=== PATIENT | female | born 1955 | race Caucasian/White ===

== ENCOUNTER 2022-03-02 09:27 | Inpatient (IN) | payer OTHER, MEDICARE, SELFPAY ==
--- NOTE | ~2022-03-02 | CT_ITS ---
EXAMINATION: CT GI BLEED ABDOMEN AND PELVIS WITH AND WITHOUT CONTRAST CLINICAL INFORMATION: Clotted via rectum. Abdominal pain. COMPARISON: None TECHNIQUE: Axial images through the abdomen and pelvis with and without IV contrast. The patient received 80 mL of Omnipaque 350 intravenous contrast. Sagittal and coronal reconstructions on the technologist workstation were performed. Patient dose 8 3 2 mg/cm. FINDINGS: Vascular: The abdominal aorta is normal in caliber and patent. The common, internal and external iliac and common femoral arteries and femoral bifurcations are normal in caliber and patent. The celiac axis, SMA and KADE are normal in caliber and patent. There are single patent renal arteries bilaterally. No evidence of active GI bleeding is seen. The SMV and IMV are patent. The splenic vein portal veins are patent. Veins are patent. The renal veins are patent. The IVC appears patent. The lung bases are clear. The liver and gallbladder are normal. There are multiple splenules. The spleen is otherwise unremarkable. The pancreas is normal. The adrenal glands are normal. There is bilateral renal cysts measuring 1.5 cm in the peripelvic mid to lower pole of the right kidney and 4 x 6 cm in the upper pole of the left kidney. The kidneys are otherwise unremarkable. No imaging follow-up needed. The bladder is normal. The uterus and adnexa are normal. There is mild diverticulosis of the colon. There is long segment wall thickening and wall edema of the distal colon involving the left colon and sigmoid colon. There is stranding of the surrounding fat. There is prominence of the vasa recta. Appearance is suggestive of active colitis. No evidence of obstruction or free air. No abscess. Small and large bowel is otherwise unremarkable. The rectum is normal. The appendix is normal. The stomach is normal. There is a small umbilical hernia containing fat. Trace ascites in the pelvis. No free air. There are degenerative changes of the spine and hip joints. CT/CT gi bleed abd pel wo/w con IMPRESSION: No evidence of active GI bleed. Severe colitis of the left colon and sigmoid colon. Mild diverticulosis of the colon. Bilateral renal cysts.
[2022-03-02 09:33] VITALS: BP 187/84; PULSE 74; RESP 18; TEMP 37.1; O2SAT 95; BMI 34.9
--- NOTE | 2022-03-02 09:50 | ECG_ITS ---
Test Reason : GI bleed/weakness Blood Pressure : / mmHG Vent. Rate : 067 BPM Atrial Rate : 067 BPM P-R Int : 154 ms QRS Dur : 080 ms QT Int : 406 ms P-R-T Axes : 058 025 014 degrees QTc Int : 429 ms Normal sinus rhythm Cannot rule out Anterior infarct , age undetermined Abnormal ECG No previous ECGs available Referred By: Thalia Foster Electronically Signed By:SANDRA MAYEN
--- NOTE | 2022-03-02 09:51 | ED.GIBLEED ---
HPI - GI Bleed General Chief complaint: GI Bleed Stated complaint: constipated x3 days, blood clots Time Seen by Provider: 03/02/22 09:48 Source: patient Mode of arrival: ambulatory Limitations: no limitations History of Present Illness HPI Narrative: 66 y female hx of HTN not on thinners or NSAIDs/ASA comes in with c/o 3 days of abdominal discomfort, bloating, and brbpr with clots since Monday. She has had 4 + movements with clots per day no stool mixed in. She denies prior colonoscopy but had cologuard this month that was negative. She has here visiting from [place]. No recent antibiotic use, no sick contacts, no prior bouts of this. The patient notes prior to this she shared pineapple pizza and [employer] with her family no one else got sicj. MD complaint: gross hematochezia Onset (ago): day(s) (4 (started Monday)) Pain Consistency: intermittent Severity: moderate Relieving factors: bowel movement Exacerbating factors: movement Associated symptoms: abdominal pain, nausea, loss of appetite and malaise Treatments Prior to Arrival: none Related Data Home Medications Medication Instructions Recorded Confirmed amlodipine 10 mg tablet 1 tab PO DAILY 03/02/22 03/02/22 calcium carbonate 500 mg-vitamin 2 tab PO DAILY 03/02/22 03/02/22 D3 10 mcg (400 unit) tablet (Calcium 500 + D) citalopram 40 mg tablet 1 tab PO DAILY 03/02/22 03/02/22 clonazepam 0.5 mg tablet 1 tab PO DAILY PRN Anxiety 03/02/22 03/02/22 omeprazole 20 mg capsule,delayed 1 cap PO DAILY PRN Heartburn 03/02/22 03/02/22 release Allergies Allergy/AdvReac Type Severity Reaction Status Date / Time No Known Allergies Allergy Verified 03/02/22 09:33 Review of Systems Review of Systems: Constitutional : No Weight loss, No Fever, No Chills ENT/Mouth : No sore throat, No Rhinorrhea Eyes: No Swelling, No Redness Cardiovascular : No Chest Pain, No SOB, NoEdema Respiratory : No Cough, No Sputum, No Wheezing Gastrointestinal : Positive Nausea, no Vomiting, positive Diarrhea, positive abdominal Pain, pos Hematochezia, No Melena Genitourinary : No Dysuria, No Urinary Frequency, No Hematuria, No Urgency Musculoskeletal : No joint pain, No Myalgias, No Joint Swelling Skin : No Skin Lesions, No rash Neuro : No Weakness, No Numbness, No Dizziness, No Headache Psych : No Anxiety/Panic, No Depression Heme/Lymph: No Bruising, No Lymphadenopathy Endocrine : No Polyuria, No Polydipsia All other systems reviewed and are negative. [facility] Past Medical History Attestation statement: The following information was validated with the patient. Medical History HTN (hypertension) Social History Social History (Updated 03/02/22 @ 10:14 by Thalia Foster DO) Patient Tobacco Use Status: Never used Tobacco Use of substances other than those prescribed or required for medical reasons: No Advance Directives: No Advance Directives Information Provided: Yes Physical Exam Vital Signs: Vital Signs: Last Vital Signs Temp 98.7 F 03/02/22 09:33 Pulse 72 03/02/22 10:16 Resp 18 03/02/22 10:16 BP 174/91 H 03/02/22 10:16 Pulse Ox 93 03/02/22 10:16 O2 Del Method 03/02/22 10:16 BMI result Body Mass Index 34.9 Appearance: Alert. Oriented X3. in pain mild acute distress. Eyes: Pupils equal, round and reactive to light. ENT: Pharynx normal. Neck: Normal inspection. Neck supple. CVS: Normal heart rate and rhythm. Pulses normal. Respiratory: No respiratory distress. Breath sounds normal. Abdomen: Soft and moderate diffuse ttp no rebound mild vol guarding Rectal: ext non thrombosed hemorrhoids, dried blood on rectum, digit brb noted Skin: Skin warm and dry. Normal skin color. Normal skin turgor. Extremities: No lower extremity edema. No calf ttp Neuro: Oriented X 3. No motor deficit. No sensory deficit. Course Course Course Narrative: H/H stable, given pain and repeat pain medications and severe colitis will admit for IV pain control, hydration start on levofloxacin and flagyl given CT scan and suspected colitis - blood cultures ordered, infection suspected 1230pm MDM - GI Bleed MDM Narrative Medical decision making narrative: 66 yo female with hx of HTN now here with abdominal pain and brbpr with clots not on AC therapy at this time will need labs, IVF, IV fentanyl for pain. type and screen ordered. CT scan for GI bleed protocol as well. Dispo per results and findings - possible admit. Lab Data Result diagrams: 03/02/22 10:13 03/02/22 10:13 Labs: Lab Results 03/02/22 03/02/22 03/02/22 Range/Units 10:13 10:13 10:13 WBC 12.2 H (4.8-10.8) X10*3/uL RBC 4.92 (4.20-5.50) X10*6/uL Hgb 14.9 (12.0-16.0) g/dl Hct 43.9 (37.0-47.0) % MCV 89.2 (80.0-98.0) fL MCH 30.3 (27.0-33.0) pg MCHC 33.9 (31.0-35.0) g/dl RDW 13.4 (11.0-16.0) % Plt Count 209 (160-400) X10*3/uL MPV 11.0 (9.4-12.3) fL Immature Gran % (Auto) 0.4 (0.0-0.4) % Neut % (Auto) 75.7 H (45-73) % Lymph % (Auto) 15.6 L (20-40) % [place] % (Auto) 6.7 (2-11) % Eos % (Auto) 1.0 (0-4) % Baso % (Auto) 0.6 (0-2) % Lymph # (Auto) 1.9 (1.2-4.9) X10*3/uL [place] # (Auto) 0.8 (0.1-1.2) X10*3/uL Eos # (Auto) 0.1 (0.0-0.4) X10*3/uL Baso # (Auto) 0.1 (0.0-0.2) X10*3/uL Abs Immat Gran (auto) 0.05 H (0.00-0.03) X10*3/uL Absolute Neuts (auto) 9.2 H (2.0-8.3) x10*3/uL Absolute Nucleated RBC 0.000 (0.0-0.012) X10*3/uL Nucleated RBC % (auto) 0.0 (0.0-0.2) /100WBC PT 12.2 (10.0-13.1) SEC INR 1.1 (0.9-1.1) Sodium 142 (135-145) mmol/L Potassium 3.2 L (3.3-5.1) mmol/L Chloride 102 (96-108) mmol/L Carbon Dioxide 28 (22-29) mmol/L Anion Gap 15 (12-20) BUN 11 (9-16) mg/dL Creatinine 0.82 (0.5-1.4) mg/dL Estim Creat Clear Calc 78.0 Estimated GFR > 60 Random Glucose 120 H (60-115) mg/dL Lactic Acid (0.5-2.0) mmol/L Calcium 8.9 (8.4-10.2) mg/dL Magnesium 2.0 (1.6-2.6) mg/dL Total Bilirubin 0.6 (0.0-1.0) mg/dL Direct Bilirubin 0.3 (0.0-0.5) mg/dL AST 13 (5-31) U/L ALT 12 (0-31) U/L Alkaline Phosphatase 78 (39-117) U/L Total Protein 6.5 (6.5-8.0) g/dL Albumin 4.0 (3.5-5.0) g/dL Lipase 17 (8-78) U/L Urine Color Urine Appearance Urine pH (5.0-8.0) Ur Specific [place] (1.005-1.025) Urine Protein (Neg-Trace) mg/dL Urine Glucose (UA) (Negative) mg/dL Urine Ketones (Negative) mg/dL Urine Blood (Negative) Urine Nitrite (Negative) Ur Leukocyte Esterase (Negative) Urine RBC (0-2) /HPF Urine WBC (0-5) /HPF Ur Squamous Epith Cells (0-2) /HPF Urine Bacteria (None Seen) Hyaline Casts (0-2) /LPF Stool Occult Blood (NEGATIVE) COVID-19 (LOLI) (Negative) COVID-19 Clin Com Blood Type Antibody Screen 03/02/22 03/02/22 03/02/22 Range/Units 10:13 10:13 10:13 WBC (4.8-10.8) X10*3/uL RBC (4.20-5.50) X10*6/uL Hgb (12.0-16.0) g/dl Hct (37.0-47.0) % MCV (80.0-98.0) fL MCH (27.0-33.0) pg MCHC (31.0-35.0) g/dl RDW (11.0-16.0) % Plt Count (160-400) X10*3/uL MPV (9.4-12.3) fL Immature Gran % (Auto) (0.0-0.4) % Neut % (Auto) (45-73) % Lymph % (Auto) (20-40) % [place] % (Auto) (2-11) % Eos % (Auto) (0-4) % Baso % (Auto) (0-2) % Lymph # (Auto) (1.2-4.9) X10*3/uL [place] # (Auto) (0.1-1.2) X10*3/uL Eos # (Auto) (0.0-0.4) X10*3/uL Baso # (Auto) (0.0-0.2) X10*3/uL Abs Immat Gran (auto) (0.00-0.03) X10*3/uL Absolute Neuts (auto) (2.0-8.3) x10*3/uL Absolute Nucleated RBC (0.0-0.012) X10*3/uL Nucleated RBC % (auto) (0.0-0.2) /100WBC PT (10.0-13.1) SEC INR (0.9-1.1) Sodium (135-145) mmol/L Potassium (3.3-5.1) mmol/L Chloride (96-108) mmol/L Carbon Dioxide (22-29) mmol/L Anion Gap (12-20) BUN (9-16) mg/dL Creatinine (0.5-1.4) mg/dL Estim Creat Clear Calc Estimated GFR Random Glucose (60-115) mg/dL Lactic Acid 1.0 (0.5-2.0) mmol/L Calcium (8.4-10.2) mg/dL Magnesium (1.6-2.6) mg/dL Total Bilirubin (0.0-1.0) mg/dL Direct Bilirubin (0.0-0.5) mg/dL AST (5-31) U/L ALT (0-31) U/L Alkaline Phosphatase (39-117) U/L Total Protein (6.5-8.0) g/dL Albumin (3.5-5.0) g/dL Lipase (8-78) U/L Urine Color Urine Appearance Urine pH (5.0-8.0) Ur Specific [place] (1.005-1.025) Urine Protein (Neg-Trace) mg/dL Urine Glucose (UA) (Negative) mg/dL Urine Ketones (Negative) mg/dL Urine Blood (Negative) Urine Nitrite (Negative) Ur Leukocyte Esterase (Negative) Urine RBC (0-2) /HPF Urine WBC (0-5) /HPF Ur Squamous Epith Cells (0-2) /HPF Urine Bacteria (None Seen) Hyaline Casts (0-2) /LPF Stool Occult Blood POSITIVE (NEGATIVE) COVID-19 (LOLI) Negative (Negative) COVID-19 Clin Com See Note Blood Type Antibody Screen 03/02/22 03/02/22 Range/Units 10:40 11:34 WBC (4.8-10.8) X10*3/uL RBC (4.20-5.50) X10*6/uL Hgb (12.0-16.0) g/dl Hct (37.0-47.0) % MCV (80.0-98.0) fL MCH (27.0-33.0) pg MCHC (31.0-35.0) g/dl RDW (11.0-16.0) % Plt Count (160-400) X10*3/uL MPV (9.4-12.3) fL Immature Gran % (Auto) (0.0-0.4) % Neut % (Auto) (45-73) % Lymph % (Auto) (20-40) % [place] % (Auto) (2-11) % Eos % (Auto) (0-4) % Baso % (Auto) (0-2) % Lymph # (Auto) (1.2-4.9) X10*3/uL [place] # (Auto) (0.1-1.2) X10*3/uL Eos # (Auto) (0.0-0.4) X10*3/uL Baso # (Auto) (0.0-0.2) X10*3/uL Abs Immat Gran (auto) (0.00-0.03) X10*3/uL Absolute Neuts (auto) (2.0-8.3) x10*3/uL Absolute Nucleated RBC (0.0-0.012) X10*3/uL Nucleated RBC % (auto) (0.0-0.2) /100WBC PT (10.0-13.1) SEC INR (0.9-1.1) Sodium (135-145) mmol/L Potassium (3.3-5.1) mmol/L Chloride (96-108) mmol/L Carbon Dioxide (22-29) mmol/L Anion Gap (12-20) BUN (9-16) mg/dL Creatinine (0.5-1.4) mg/dL Estim Creat Clear Calc Estimated GFR Random Glucose (60-115) mg/dL Lactic Acid (0.5-2.0) mmol/L Calcium (8.4-10.2) mg/dL Magnesium (1.6-2.6) mg/dL Total Bilirubin (0.0-1.0) mg/dL Direct Bilirubin (0.0-0.5) mg/dL AST (5-31) U/L ALT (0-31) U/L Alkaline Phosphatase (39-117) U/L Total Protein (6.5-8.0) g/dL Albumin (3.5-5.0) g/dL Lipase (8-78) U/L Urine Color Yellow Urine Appearance Clear Urine pH 6.5 (5.0-8.0) Ur Specific [place] 1.020 (1.005-1.025) Urine Protein Negative (Neg-Trace) mg/dL Urine Glucose (UA) Negative (Negative) mg/dL Urine Ketones Negative (Negative) mg/dL Urine Blood Negative (Negative) Urine Nitrite Negative (Negative) Ur Leukocyte Esterase Small (1+) H (Negative) Urine RBC 0-2 (0-2) /HPF Urine WBC 0-5 (0-5) /HPF Ur Squamous Epith Cells 3-5 (0-2) /HPF Urine Bacteria None Seen (None Seen) Hyaline Casts 0-2 (0-2) /LPF Stool Occult Blood (NEGATIVE) COVID-19 (LOLI) (Negative) COVID-19 Clin Com Blood Type A Positive Antibody Screen NEGATIVE ECG Data Attestation: I personally reviewed and interpreted this ECG as follows: ECG interpretation date: 03/02/22 ECG interpretation time: 10:31 Interpretation: Rate: 67 Rhythm: NSR [place]: normal Normal P waves. Normal ZEKE. Normal QRS complex. ST T wave : no SHYANNE, non-specific, inverted t waves in V1-V3 qTC: normal prior studies: no priors The study has been interpreted contemporaneously by me. . Discharge Plan Discharge Clinical Impression: Bright red rectal bleeding, Colitis, Abdominal pain, Acute hypokalemia Patient Disposition: Admitted As Inpatient
[2022-03-02 10:16] VITALS: BP 174/91; PULSE 72; RESP 18; O2SAT 93
[2022-03-02 10:20] LABS: MANUAL DIFF FLAG NO
[2022-03-02 10:23] LABS: Basophils Absolute Auto 0.1 X10*3/uL (0.0-0.2); Basophils Percent Auto 0.6 % (0-2); Eosinophils Absolute Auto 0.1 X10*3/uL (0.0-0.4); Hematocrit 43.9 % (37.0-47.0); Hemoglobin 14.9 g/dl (12.0-16.0); Imm Gran Abs Auto 0.05 X10*3/uL (0.00-0.03); Imm Gran Pct Auto 0.4 % (0.0-0.4); Lymphocytes Absolute Auto 1.9 X10*3/uL (1.2-4.9); Lymphocytes Percent Auto 15.6 % (20-40); Mean Corpuscular HGB Conc 33.9 g/dl (31.0-35.0); Mean Corpuscular Hemoglobin 30.3 pg (27.0-33.0); Mean Corpuscular Volume 89.2 fL (80.0-98.0); Monocytes Absolute Auto 0.8 X10*3/uL (0.1-1.2); Monocytes Percent Auto 6.7 % (2-11); Neutrophils Absolute Auto 9.2 x10*3/uL (2.0-8.3); Neutrophils Percent Auto 75.7 % (45-73); Platelet Count 209 X10*3/uL (160-400); Red Blood Count 4.92 X10*6/uL (4.20-5.50); Red Cell Distribution Width 13.4 % (11.0-16.0); White Blood Count 12.2 X10*3/uL (4.8-10.8)
[2022-03-02 10:24] LABS: OBS Int Ctl Valid YES; OBS1 POSITIVE (NEGATIVE)
[2022-03-02 10:29] LABS: INTERNATIONAL NORM RATIO 1.1 (0.9-1.1); Prothrombin Time 12.2 SEC (10.0-13.1)
[2022-03-02] MEDS: fentaNYL citrate/PF 100 MCG/2 ML VIAL 50 MCG IVPUSH (10:29)
[2022-03-02] MEDS: ondansetron HCL 4 MG/2 ML VIAL IVPUSH ×2 (10:29→15:59)
[2022-03-02] MEDS: Lactated Ringers 1,000 ML 999 ML IV (10:31)
[2022-03-02 10:39] LABS: Alanine Aminotransferase 12 U/L (0-31); Alkaline Phosphatase 78 U/L (39-117); Anion Gap 15 (12-20); Aspartate Amino Transferase 13 U/L (5-31); Bilirubin Direct 0.3 mg/dL (0.0-0.5); Bilirubin Total 0.6 mg/dL (0.0-1.0); Blood Urea Nitrogen 11 mg/dL (9-16); Calcium 8.9 mg/dL (8.4-10.2); Carbon Dioxide 28 mmol/L (22-29); Chloride 102 mmol/L (96-108); Estimated Glomerular Filt Rate > 60; Glucose Random 120 mg/dL (60-115); Lipase 17 U/L (8-78); Potassium 3.2 mmol/L (3.3-5.1); Sodium 142 mmol/L (135-145); Total Protein 6.5 g/dL (6.5-8.0)
[2022-03-02 10:47] LABS: COVID-19 Test Negative (Negative)
[2022-03-02] MEDS: Potassium Chloride/H20 10 MEQ/100 ML PIGGYBACK 100 MEQ IV ×2 (10:51→13:01)
[2022-03-02] MEDS: iohexoL 350 MG/ML 100 ML INFUS..BTL IV (11:23)
[2022-03-02 11:42] LABS: Appearance Urine Clear; Color Urine Yellow; Glucose Urine UA Negative (Negative); Leukocyte Esterase Urine Small (1+) (Negative); Nitrite Urine Negative (Negative); PH 6.5 (5.0-8.0); Urine Blood Negative (Negative); Urine Ketones Negative (Negative); Urine Protein Negative (Neg-Trace)
[2022-03-02 12:17] LABS: Bacteria Urine None Seen (None Seen); Hyaline Casts Urine 0-2 /LPF (0-2); RBC Urine 0-2 /HPF (0-2); UACC Culture Trigger YES; WBC Urine 0-5 /HPF (0-5)
--- NOTE | 2022-03-02 12:34 | PHA.MEDREC ---
Pharmacy Consult ? Medication Reconciliation Pharmacy has completed the medication reconciliation.
[2022-03-02] MEDS: HYDROmorphone HCl 0.5 MG/0.5 ML SYRINGE IVPUSH ×3 (13:01→21:09)
[2022-03-02] MEDS: Lactated Ringers 1,000 ML 100 ML IVCONT (13:05)
[2022-03-02 13:16] VITALS: BP 145/83; PULSE 83; RESP 18; O2SAT 88
[2022-03-02 13:19] VITALS: O2SAT 98
[2022-03-02] MEDS: levoFLOXacin/D5W 500 MG/100 ML PIGGYBACK 100 MG IV (13:33)
--- NOTE | 2022-03-02 13:54 | PM.IMHP ---
History of Present Illness Date of Service: 03/02/22 Chief Complaint: Abdominal pain, rectal bleeding A 66 years old lady with PMH of depression, anxiety, HTN who presents to the hospital complaining of abdominal pain and bloody bowel movement for the last 3 days. She reports that on Monday she was out having dinner with family. Started to have abdominal pain bloating and diarrhea that evening with evidence of clots with stool. Her pain was control so she did not come to the hospital and was able to tolerate liquids. Reporting almost 45 bowel movement today over the last few days with recurrent bloody clots. Denies any chest pain, palpitation, shortness of breath, nausea or vomiting or any urinary symptoms. No one from the family who joint her for the de not had any similar symptoms. The pain was central, pressure-like with burning sensation in her lower abdomen. Not radiated to any other place. Report that she had colonoscopy when she was around 51 that was normal but did not follow-up after that. In the emergency a CT scan was consistent with evidence of colitis. Admitted for further evaluation and treatment. Review of Systems Review of Systems: No fever, chills or weakness No chest pain, palpitation No shortness of breath or coughing Abdominal pain, bloody bowel motions No urinary symptoms No any rash or wounds PMFSH Medical History HTN (hypertension) Social History (Updated 03/02/22 @ 10:14 by Thalia Foster DO) Patient Tobacco Use Status: Never used Tobacco Use of substances other than those prescribed or required for medical reasons: No Advance Directives: No Advance Directives Information Provided: Yes Meds Allergies Allergy/AdvReac Type Severity Reaction Status Date / Time No Known Allergies Allergy Verified 03/02/22 09:33 Active Medications: Current Medications Acetaminophen (Acetaminophen 325 Mg Tablet) 650 mg PO Q6H PRN PRN Reason: Pain, Mild (Pain Scale 1-3) Amlodipine Besylate (Amlodipine Besylate 10 Mg Tablet) 10 mg PO DAILY JOHN; Protocol Clonazepam (Clonazepam 0.5 Mg Tablet) 0.5 mg PO DAILY PRN PRN Reason: Anxiety Hydromorphone HCl (Hydromorphone Hcl 1 Mg/Ml Syringe) 0.5 mg IVPUSH Q4H PRN; Protocol PRN Reason: Pain, Severe (Pain Scale 7-10) Lactated Ringer's (Lr) 1,000 mls @ 100 mls/hr IVCONT .Q10H [facility] Last Admin: 03/02/22 13:05 Dose: 100 mls/hr Levofloxacin (Levaquin) 500 mg in 100 mls @ 100 mls/hr IV Q24H JOHN Metronidazole (Flagyl) 500 mg in 100 mls @ 100 mls/hr IV Q8H [facility] Non-Formulary Medication (Citalopram) 1 tab PO DAILY [facility] Omeprazole (Omeprazole 20 Mg Capsule.Dr) 20 mg PO DAILY PRN PRN Reason: Heartburn Ondansetron HCl (Ondansetron Hcl 4 Mg/2 Ml Vial) 4 mg IVPUSH Q8H PRN PRN Reason: Nausea and Vomiting Pharmacy Consult (Consult Rx Perform Med Rec) 1 each MISCELLANE ONCE PRN PRN Reason: Consult order Sodium Chloride (0.9 % Sodium Chloride Flush 3 Ml Syringe) 3 ml IVFLUSH QSHIFT [facility] Home Medications Medication Instructions Recorded Confirmed Last Taken Type amlodipine 10 mg tablet 1 tab PO DAILY 03/02/22 03/02/22 03/01/22 History calcium carbonate 500 mg-vitamin 2 tab PO DAILY 03/02/22 03/02/22 03/01/22 History D3 10 mcg (400 unit) tablet (Calcium 500 + D) citalopram 40 mg tablet 1 tab PO DAILY 03/02/22 03/02/22 03/01/22 History clonazepam 0.5 mg tablet 1 tab PO DAILY PRN Anxiety 03/02/22 03/02/22 03/01/22 History omeprazole 20 mg capsule,delayed 1 cap PO DAILY PRN Heartburn 03/02/22 03/02/22 Unknown History release Physical Exam Vital Signs and Narrative: Vital Signs: Last Vital Signs Temp 98.7 F 03/02/22 09:33 Pulse 83 03/02/22 13:16 Resp 18 03/02/22 13:16 BP 145/83 H 03/02/22 13:16 Pulse Ox 98 03/02/22 13:19 O2 Del Method 03/02/22 13:19 O2 Flow Rate 2 03/02/22 13:19 BMI result Body Mass Index 34.9 Const: Other: Constitutional : Alert, oriented, not in distress Neck : Normal inspection, Supple Cardiovascular : RRR, no JVP, no lower extremity edema Respiratory : fair bilateral air entry, no crackles, wheezes or rhonchi Gastrointestinal: soft, lax, decreased bowel sounds, generalized abdominal tenderness with no surgical signs. Skin : Warm, Dry Neurological : Alert & oriented x3, No focal deficit , CN 2-12 within normal Results Labs CBC and Chem 7: 03/02/22 10:13 03/02/22 10:13 Labs: Laboratory Results - last 24 hr 03/02/22 03/02/22 03/02/22 10:13 10:13 10:13 MCV 89.2 MCH 30.3 MCHC 33.9 RDW 13.4 Plt Count 209 MPV 11.0 Immature Gran % (Auto) 0.4 Neut % (Auto) 75.7 H Lymph % (Auto) 15.6 L [place] % (Auto) 6.7 Eos % (Auto) 1.0 Baso % (Auto) 0.6 Lymph # (Auto) 1.9 [place] # (Auto) 0.8 Eos # (Auto) 0.1 Baso # (Auto) 0.1 Abs Immat Gran (auto) 0.05 H Absolute Neuts (auto) 9.2 H Absolute Nucleated RBC 0.000 Nucleated RBC % (auto) 0.0 PT 12.2 INR 1.1 Anion Gap 15 Estim Creat Clear Calc 78.0 Estimated GFR > 60 Random Glucose 120 H Lactic Acid Calcium 8.9 Magnesium 2.0 Total Bilirubin 0.6 Direct Bilirubin 0.3 AST 13 ALT 12 Alkaline Phosphatase 78 Total Protein 6.5 Albumin 4.0 Lipase 17 Urine Color Urine Appearance Urine pH Ur Specific [place] Urine Protein Urine Glucose (UA) Urine Ketones Urine Blood Urine Nitrite Ur Leukocyte Esterase Urine RBC Urine WBC Ur Squamous Epith Cells Urine Bacteria Hyaline Casts Stool Occult Blood COVID-19 (LOLI) COVID-19 Clin Com Blood Type Antibody Screen 03/02/22 03/02/22 03/02/22 10:13 10:13 10:13 MCV MCH MCHC RDW Plt Count MPV Immature Gran % (Auto) Neut % (Auto) Lymph % (Auto) [place] % (Auto) Eos % (Auto) Baso % (Auto) Lymph # (Auto) [place] # (Auto) Eos # (Auto) Baso # (Auto) Abs Immat Gran (auto) Absolute Neuts (auto) Absolute Nucleated RBC Nucleated RBC % (auto) PT INR Anion Gap Estim Creat Clear Calc Estimated GFR Random Glucose Lactic Acid 1.0 Calcium Magnesium Total Bilirubin Direct Bilirubin AST ALT Alkaline Phosphatase Total Protein Albumin Lipase Urine Color Urine Appearance Urine pH Ur Specific [place] Urine Protein Urine Glucose (UA) Urine Ketones Urine Blood Urine Nitrite Ur Leukocyte Esterase Urine RBC Urine WBC Ur Squamous Epith Cells Urine Bacteria Hyaline Casts Stool Occult Blood POSITIVE COVID-19 (LOLI) Negative COVID-19 Clin Com See Note Blood Type Antibody Screen 03/02/22 03/02/22 10:40 11:34 MCV MCH MCHC RDW Plt Count MPV Immature Gran % (Auto) Neut % (Auto) Lymph % (Auto) [place] % (Auto) Eos % (Auto) Baso % (Auto) Lymph # (Auto) [place] # (Auto) Eos # (Auto) Baso # (Auto) Abs Immat Gran (auto) Absolute Neuts (auto) Absolute Nucleated RBC Nucleated RBC % (auto) PT INR Anion Gap Estim Creat Clear Calc Estimated GFR Random Glucose Lactic Acid Calcium Magnesium Total Bilirubin Direct Bilirubin AST ALT Alkaline Phosphatase Total Protein Albumin Lipase Urine Color Yellow Urine Appearance Clear Urine pH 6.5 Ur Specific [place] 1.020 Urine Protein Negative Urine Glucose (UA) Negative Urine Ketones Negative Urine Blood Negative Urine Nitrite Negative Ur Leukocyte Esterase Small (1+) H Urine RBC 0-2 Urine WBC 0-5 Ur Squamous Epith Cells 3-5 Urine Bacteria None Seen Hyaline Casts 0-2 Stool Occult Blood COVID-19 (LOLI) COVID-19 Clin Com Blood Type A Positive Antibody Screen NEGATIVE Imaging Radiologist's Impressions: Impressions Abdomen/Pelvis CT 03/02/22 11:22 IMPRESSION: No evidence of active GI bleed. Severe colitis of the left colon and sigmoid colon. Mild diverticulosis of the colon. Bilateral renal cysts. Assessment and Plan (1) Bright red rectal bleeding: Status: Acute (2) Colitis: Status: Acute (3) Acute hypokalemia: Status: Acute Plan A 66 years old lady with PMH of depression, anxiety, HTN who presents to the hospital complaining of abdominal pain and bloody bowel movement for the last 3 days. Acute colitis Seems to be infectious in etiology Not septic Start IV fluid Clear liquids IV antibiotic of Levaquin and Flagyl Pending blood cultures Rectal bleeding Hemoglobin of almost 15 Bleeding likely from colitis Monitor H and H Get GI evaluation Acute hypokalemia Potassium of 3 To give replacement and monitor BMP Depression Continue citalopram and clonazepam as needed DVT PPX SCDs The patient will need 2. Overnight hospital stay for treatment of acute colitis and evaluation for rectal bleeding pending GI evaluation to prevent possible decompensation into sepsis. Quality Stroke Does the patient have a stroke diagnosis?: No VTE Prior VTE?: No VTE Risk Level:: Medical - moderate - high VTE Device Contraindication: N/A - Device Ordered VTE Drug Contraindication: Treatment Not Indicated
[2022-03-02 14:11] VITALS: BP 158/74; PULSE 69; RESP 12; O2SAT 100
[2022-03-02] MEDS: metroNIDAZOLE/NS 500 MG/100 ML PIGGYBACK 100 MG IV ×2 (14:24→21:12)
--- NOTE | 2022-03-02 18:46 | P.EN_ITS ---
Event Note Date of Service: 03/02/22 Event Note: GI Consult-Full note dictated Imp: Acute colitis. Her history and workup are most c/w either infectious or ischemic colitis. I favor the latter at this time given the distribution on the CT and the clinical history. She appears very stable with no significant blee ding nor drop in Hgb. Her abdominal exam is asphalt heater tender, but it is soft with good BS. Rec: Supportive care, IV antibiotics, F/U labs, check stool specimens(I ordered them) to R/O infection, and clear liquids for now but advance as her clinical course permits. I will hold off on colonoscopy given the acute symptoms and CT findings, but if things don't improve we could proceed with a limited exam, i.e. a Flex sig. She should F/U with her home MD's(she is from [place]) and arrange for a colonoscopy in 1-2 months. D/W patient in detail and she is comfortable with this plan. Thanks
[2022-03-02 21:09] VITALS: RESP 14
[2022-03-03] VITALS (8 sets, daily range): BP systolic 99–134; BP diastolic 45–62; PULSE 52–65; RESP 16–20; TEMP 36.2–37; O2SAT 94–99; BMI 32.6
[2022-03-03] MEDS: 0.9 % Sodium Chloride Flush 3 ML SYRINGE IVFLUSH ×2 (00:11→14:10)
[2022-03-03] MEDS: Lactated Ringers 1,000 ML 100 ML IVCONT ×3 (00:11→20:13)
[2022-03-03] MEDS: HYDROmorphone HCl 0.5 MG/0.5 ML SYRINGE IVPUSH ×4 (03:11→20:12)
[2022-03-03] MEDS: metroNIDAZOLE/NS 500 MG/100 ML PIGGYBACK 100 MG IV (05:58)
--- NOTE | 2022-03-03 06:40 | CONS_ITS ---
DATE OF SERVICE: 03/02/2022 REASON FOR CONSULTATION: Abdominal pain, rectal bleeding, and abnormal CT scan of colon. HISTORY OF PRESENT ILLNESS: This has been obtained from the patient and the medical record. The patient is a 66-year-old female who is generally in good health and feeling well.She developed the sudden onset of fairly diffuse lower abdominal pain and rectal bleeding on February 27. Prior to that, she reports basically feeling well without any particular GI problems other than some intermittent abdominal bloating and gas. She is actually here visiting from [place] to see her son, who lives in [place]. She came here on Monday and did eat in a restaurant with her family on the day her symptoms started. They all shared some pizza and later that night is when her symptoms started. However, she reports that no one else became ill. Since her symptoms started, she has been having lower abdominal cramping and pain with associated rectal bleeding, with both liquid red blood and some blood clots. She did not notice any melena. She has had nausea but no vomiting. She has had a low-grade temperature of about 100.2 at home. She denies any urinary symptoms. She denies any recent use of antibiotics, chronic use of NSAIDs, use of any blood thinners, use of tobacco nor significant alcohol on a regular basis, and denies any similar issues like this in the past. She does describe a negative colonoscopy about 15 years ago for screening. However, she does do yearly Cologuard tests that have been reportedly negative with her primary care physician in [place]. She finally came to the ER today due to the persistence of the symptoms. Since being in the ER, she still has intermittent abdominal pain but has had no bleeding since this morning. She has been hemodynamically stable in the ER and she was afebrile this morning. She denies any known family history of inflammatory bowel disease, colorectal cancer, nor colorectal polyps. MEDICATIONS: At home included amlodipine, citalopram, clonazepam, omeprazole, and vitamin D. Medications here in the hospital include IV Flagyl, amlodipine, clonazepam, escitalopram, IV Levaquin, and omeprazole. PAST MEDICAL HISTORY: Hypertension. Anxiety. C-sections. She denies history of [place], diabetes, stroke, lung disease, or kidney disease. SOCIAL HISTORY: She is . 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 She does not smoke nor use any alcohol. FAMILY HISTORY: Noncontributory. REVIEW OF SYSTEMS: CONSTITUTIONAL: Prior to the day her illness started, she was feeling well with good energy, good appetite. SKIN: No rash. No pruritus. CARDIAC: No chest pain. PULMONARY: No cough. No hemoptysis. GI: As above. URINARY: No dysuria. No hematuria. NEUROLOGIC: No headache or seizures. PHYSICAL EXAMINATION: GENERAL: The patient is a pleasant, alert, comfortable-appearing female. SKIN: Warm and dry. HEENT: Anicteric sclerae. Moist mucous membranes. NECK: Supple. CARDIAC: Normal S1, S2. ABDOMEN: Soft but somewhat diffusely tender. The abdomen is nondistended. Bowel sounds are normal. There is no focal mass, rebound, or guarding. EXTREMITIES: Without edema. LABORATORY DATA: White blood cell count 12.2, hemoglobin 14.9, MCV 89, platelets 209,000. PT 12.2, INR 1.1. Sodium 142, potassium 3.2, BUN 11, creatinine 0.8. Lactic acid level 1.0. LFTs normal. Albumin 4.0. Lipase 17. Stool was heme positive. Stool specimens have been ordered, but not yet collected, to rule out infection. CT scan of the abdomen and pelvis from this morning describes some diverticulosis but no sign of diverticulitis. There was a long segment of some bowel wall thickening and edema involving the left colon and sigmoid colon with some stranding of surrounding fat consistent with colitis. There was no evidence of any obstruction, free air, nor abscess. The remainder of the GI tract appeared normal. IMPRESSION: Given the patient's clinical history, this seems quite consistent with an acute case of colitis, most likely ischemic or infectious. Given her clinical history and the segmental distribution on the CT scan, I favor ischemic colitis over infectious colitis. At the present time, she does have some abdominal tenderness but the remainder of the abdominal exam is benign and she does not appear to be toxic whatsoever. There are no other worrisome findings on the CT scan to suggest the need for surgical intervention. While she has had bleeding, her hemoglobin is quite stable and she is hemodynamically stable as well. At this point, I would continue supportive care, antibiotics, and clear liquids. I would continue to follow up laboratories. I have ordered stool specimens to rule out any type of infection including Clostridium difficile. I would hold off on a colonoscopy during this acute process, but certainly if things do not improve, we could at least do a limited sigmoidoscopy if need be. I would advance her diet as her clinical course permits. If things continue to improve, she could be discharged and she should follow up with her primary care physician for a GI referral at home to arrange for a colonoscopy in the next 1 to 2 months. Again, I do not think colonoscopy would be indicated at the present time. If the symptoms persist here, we could proceed with at least a limited sigmoidoscopy. This has all been discussed with the patient in detail and she is comfortable with the plan. Thank you for the consultation. MD PIEDAD Murrell/KORTNEY / [id number] MTDD
[2022-03-03 06:44] LABS: Hematocrit 35.4 % (37.0-47.0); Hemoglobin 11.9 g/dl (12.0-16.0); Mean Corpuscular HGB Conc 33.6 g/dl (31.0-35.0); Mean Corpuscular Hemoglobin 30.7 pg (27.0-33.0); Mean Corpuscular Volume 91.5 fL (80.0-98.0); Mean Platelet Volume 11.4 fL (9.4-12.3); Platelet Count 167 X10*3/uL (160-400); Red Blood Count 3.87 X10*6/uL (4.20-5.50); Red Cell Distribution Width 13.6 % (11.0-16.0); White Blood Count 9.3 X10*3/uL (4.8-10.8)
[2022-03-03 06:57] LABS: Anion Gap 12 (12-20); Blood Urea Nitrogen 8 mg/dL (9-16); Calcium 7.9 mg/dL (8.4-10.2); Carbon Dioxide 28 mmol/L (22-29); Chloride 103 mmol/L (96-108); Creatinine Clr Calc Pharmacy 88.9; Estimated Glomerular Filt Rate > 60; Glucose Random 106 mg/dL (60-115); Potassium 3.4 mmol/L (3.3-5.1); Sodium 140 mmol/L (135-145)
[2022-03-03] MEDS: Escitalopram Oxalate 20 MG TABLET PO (07:38)
[2022-03-03 09:11] LABS: CDiff Gene PCR NEGATIVE (Negative)
[2022-03-03 09:50] LABS: Adenovirus F 40/41 Not Detected (Not Detect.); Astrovirus Not Detected (Not Detect.); Campylobacter Not Detected (Not Detect.); Cryptosporidium Not Detected (Not Detect.); Cyclospora cayetanensis Not Detected (Not Detect.); E. coli EAEC Not Detected (Not Detect.); E. coli EPEC Not Detected (Not Detect.); E. coli ETEC Not Detected (Not Detect.); E. coli STEC Not Detected (Not Detect.); Entamoeba histolytica Not Detected (Not Detect.); Giardia lamblia Not Detected (Not Detect.); Norovirus GI/GII Not Detected (Not Detect.); Plesiomonas shigelloides Not Detected (Not Detect.); Rotavirus A Not Detected (Not Detect.); Salmonella Not Detected (Not Detect.); Sapovirus Not Detected (Not Detect.); Shigella sp./EIEC Not Detected (Not Detect.); Vibrio Not Detected (Not Detect.); Vibrio Cholerae Not Detected (Not Detect.); Yersinia enterocolitica Not Detected (Not Detect.)
--- NOTE | 2022-03-03 12:02 | MHC.CM.PN ---
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
--- NOTE | 2022-03-03 13:07 | P.PNIM_ITS ---
Subjective Subjective Date of Service: 03/03/22 Interval History: Feels better overall denies any recurrence bleeding Tolerating clear liquids No reported other overnight events Review of Systems No fever, chills or weakness No chest pain, palpitation No shortness of breath or coughing Abdominal pain improved significantly No urinary symptoms No any rash or wounds Physical Exam Vital Signs: Vital Signs: Last Vital Signs Temp 98.6 F 03/03/22 10:43 Pulse 52 03/03/22 10:43 Resp 20 03/03/22 10:43 BP 113/59 L 03/03/22 10:43 Pulse Ox 99 03/03/22 10:43 O2 Del Method 03/03/22 10:43 O2 Flow Rate 2 03/03/22 10:43 BMI result Body Mass Index 34.9 Const: Other: Constitutional : Alert, oriented, not in distress Neck : Normal inspection, Supple Cardiovascular : RRR, no JVP, no lower extremity edema Respiratory : fair bilateral air entry, no crackles, wheezes or rhonchi Gastrointestinal: soft, lax, decreased bowel sounds, mild generalized abdominal tenderness with deep palpation, no surgical signs. Skin : Warm, Dry Neurological : Alert & oriented x3, No focal deficit , CN 2-12 within normal Objective Data Active Medications Acetaminophen (Acetaminophen 325 Mg Tablet) 650 mg PO Q6H PRN PRN Reason: Pain, Mild (Pain Scale 1-3) Amlodipine Besylate (Amlodipine Besylate 10 Mg Tablet) 10 mg PO DAILY [facility]; Protocol Last Admin: 03/03/22 07:40 Dose: Not Given Documented By: KELSEY Non-Admin Reason: Decreased Heart Rate Clonazepam (Clonazepam 0.5 Mg Tablet) 0.5 mg PO DAILY PRN PRN Reason: Anxiety Escitalopram Oxalate (Escitalopram Oxalate 20 Mg Tablet) 20 mg PO DAILY [facility] Last Admin: 03/03/22 07:38 Dose: 20 mg Documented By: SUPAOPEStephanie Hydromorphone HCl (Hydromorphone Hcl 0.5 Mg/0.5 Ml Syringe) 0.5 mg IVPUSH Q4H PRN; Protocol PRN Reason: Pain, Severe (Pain Scale 7-10) Last Admin: 03/03/22 07:38 Dose: 0.5 mg Documented By: KELSEY Lactated Ringer's (Lr) 1,000 mls @ 100 mls/hr IVCONT .Q10H [facility] Last Admin: 03/03/22 11:39 Dose: 100 mls/hr Documented By: KELSEY Levofloxacin (Levaquin) 750 mg in 150 mls @ 100 mls/hr IV Q24H [facility] Omeprazole (Omeprazole 20 Mg Capsule.Dr) 20 mg PO DAILY PRN PRN Reason: Heartburn Ondansetron HCl (Ondansetron Hcl 4 Mg/2 Ml Vial) 4 mg IVPUSH Q8H PRN PRN Reason: Nausea and Vomiting Last Admin: 03/02/22 15:59 Dose: 4 mg Documented By: THIAGO Pharmacy Consult (Consult Rx Perform Med Rec) 1 each MISCELLANE ONCE PRN PRN Reason: Consult order Sodium Chloride (0.9 % Sodium Chloride Flush 3 Ml Syringe) 3 ml IVFLUSH QSHIFT [facility] Last Admin: 03/03/22 07:29 Dose: Not Given Documented By: KELSEY Non-Admin Reason: IV Running Labs CBC & Chem 7: 03/03/22 06:37 03/03/22 06:37 Labs: Laboratory Results - last 24 hr 03/03/22 03/03/22 03/03/22 06:37 06:37 07:34 MCV 91.5 MCH 30.7 MCHC 33.6 RDW 13.6 Plt Count 167 MPV 11.4 Absolute Nucleated RBC 0.000 Nucleated RBC % (auto) 0.0 Anion Gap 12 Estim Creat Clear Calc 88.9 Estimated GFR > 60 Random Glucose 106 Calcium 7.9 L D Stl C. cayetanensis PCR Not Detected Stool Rotavirus A PCR Not Detected Stl Adenov F 40/41 PCR Not Detected Stool Astrovirus (PCR) Not Detected Stool Campylobacter PCR Not Detected Stool Cryptosporidium PCR Not Detected Stl Sh Tox Pr E STEC PCR Not Detected Stool E coli O157 PCR Not applicable Stl Enterotoxigenic E PCR Not Detected Stool EPEC (PCR) Not Detected Stool EAEC (PCR) Not Detected Stl E. histolytica PCR Not Detected Stool Giardia Lamblia PCR Not Detected Stl P. shigelloides PCR Not Detected Stool Salmonella PCR Not Detected Stool Sapovirus (PCR) Not Detected Stl Shigella/EIEC PCR Not Detected St Y.enterocolitica PCR Not Detected Stool Vibrio (PCR) Not Detected Stl Vibrio cholerae PCR Not Detected Stl Norovirus GI/GII PCR Not Detected C. difficile Tox B Gene 03/03/22 07:34 MCV MCH MCHC RDW Plt Count MPV Absolute Nucleated RBC Nucleated RBC % (auto) Anion Gap Estim Creat Clear Calc Estimated GFR Random Glucose Calcium Stl C. cayetanensis PCR Stool Rotavirus A PCR Stl Adenov F 40/41 PCR Stool Astrovirus (PCR) Stool Campylobacter PCR Stool Cryptosporidium PCR Stl Sh Tox Pr E STEC PCR Stool E coli O157 PCR Stl Enterotoxigenic E PCR Stool EPEC (PCR) Stool EAEC (PCR) Stl E. histolytica PCR Stool Giardia Lamblia PCR Stl P. shigelloides PCR Stool Salmonella PCR Stool Sapovirus (PCR) Stl Shigella/EIEC PCR St Y.enterocolitica PCR Stool Vibrio (PCR) Stl Vibrio cholerae PCR Stl Norovirus GI/GII PCR C. difficile Tox B Gene NEGATIVE Microbiology Microbiology Results: Microbiology 03/02/22 Unknown Urine Culture - Final Urine clean catch - Urine galeas top Assessment and Plan (1) Bright red rectal bleeding: Status: Acute (2) Colitis: Status: Acute Plan A 66 years old lady with PMH of depression, anxiety, HTN who presents to the hospital complaining of abdominal pain and bloody bowel movement for the last 3 days. Acute colitis Seems to be infectious, ischemic in etiology Not septic Continue home IV fluid Advanced diet to bland Continue Levaquin as antibiotic Pending blood cultures Rectal bleeding Hemoglobin drop likely from hydration, no recurrence bleeding reported overnight Bleeding likely from colitis Monitor H and H GI input appreciated, could be ischemic in nature, to do outpatient colonoscopy in the next month or 2 Acute hypokalemia Resolved monitor BMP Depression Continue citalopram and clonazepam as needed DVT PPX SCDs The patient will need overnight hospital stay for treatment of acute colitis and evaluation for rectal bleeding pending GI evaluation to prevent possible decompensation into sepsis. Quality Stroke Does the patient have a stroke diagnosis?: No VTE Prior VTE?: No VTE Risk Level:: Medical - moderate - high VTE Device Contraindication: N/A - Device Ordered VTE Drug Contraindication: Treatment Not Indicated
[2022-03-03] MEDS: levoFLOXacin/D5W 750 MG/150 ML PIGGYBACK 100 MG IV (14:10)
[2022-03-04 03:57] VITALS: BP 129/58; PULSE 68; RESP 17; TEMP 36.4; O2SAT 97
[2022-03-04 05:48] LABS: Hematocrit 33.3 % (37.0-47.0); Hemoglobin 11.2 g/dl (12.0-16.0); Mean Corpuscular HGB Conc 33.6 g/dl (31.0-35.0); Mean Corpuscular Hemoglobin 30.8 pg (27.0-33.0); Mean Corpuscular Volume 91.5 fL (80.0-98.0); Mean Platelet Volume 11.8 fL (9.4-12.3); Platelet Count 189 X10*3/uL (160-400); Red Blood Count 3.64 X10*6/uL (4.20-5.50); Red Cell Distribution Width 13.2 % (11.0-16.0); White Blood Count 8.2 X10*3/uL (4.8-10.8)
[2022-03-04 06:09] LABS: Anion Gap 14 (12-20); Blood Urea Nitrogen 10 mg/dL (9-16); Calcium 8.6 mg/dL (8.4-10.2); Carbon Dioxide 28 mmol/L (22-29); Chloride 104 mmol/L (96-108); Creatinine Clr Calc Pharmacy 81.3; Estimated Glomerular Filt Rate > 60; Glucose Random 108 mg/dL (60-115); Potassium 3.6 mmol/L (3.3-5.1); Sodium 142 mmol/L (135-145)
[2022-03-04] MEDS: Lactated Ringers 1,000 ML 100 ML IVCONT (06:10)
[2022-03-04 07:17] VITALS: BP 138/69; PULSE 60; RESP 18; TEMP 36.4; O2SAT 96
[2022-03-04] MEDS: ondansetron HCL 4 MG/2 ML VIAL IVPUSH (07:32)
[2022-03-04] MEDS: HYDROmorphone HCl 0.5 MG/0.5 ML SYRINGE IVPUSH (07:32)
[2022-03-04] MEDS: amLODIPine Besylate 10 MG TABLET PO (09:23)
[2022-03-04] MEDS: 0.9 % Sodium Chloride Flush 3 ML SYRINGE IVFLUSH ×2 (09:23→14:27)
[2022-03-04] MEDS: Escitalopram Oxalate 20 MG TABLET PO (09:23)
--- NOTE | 2022-03-04 11:04 | PM.DS ---
DS: Providers Provider Date of Service: 03/04/22 Date of admission: 03/02/22 13:42 Primary care physician: Nonstaff Physician Consults: 03/02/22 13:40 Consult to Gastroenterology Routine Consulting Provider: Oumar Townsend Reason for consultation: rectal bleeding, colitis for eval and rec. DS: Diagnosis Discharge Diagnosis (1) Bright red rectal bleeding: Status: Acute (2) Colitis: Status: Acute DS: Summary Hospital Course Hospital Course: from initial hpi: Chief Complaint: Abdominal pain, rectal bleeding A 66 years old lady with PMH of depression, anxiety, HTN who presents to the hospital complaining of abdominal pain and bloody bowel movement for the last 3 days.? She reports that on Monday she was out having dinner with family.? Started to have abdominal pain bloating and diarrhea that evening with evidence of clots with stool.? Her pain was control so she did not come to the hospital and was able to tolerate liquids.? Reporting almost 45 bowel movement today over the last few days with recurrent bloody clots.? Denies any chest pain, palpitation, shortness of breath, nausea or vomiting or any urinary symptoms.? No one from the family who joint her for the de not had any similar symptoms.? The pain was central, pressure-like with burning sensation in her lower abdomen.? Not radiated to any other place. Report that she had colonoscopy when she was around 51 that was normal but did not follow-up after that. In the emergency a CT scan was consistent with evidence of colitis. Admitted for further evaluation and treatment. hospital course: Patient was admitted for acute colitis. Seen by GI who felt this was most likely ischemic due to distribution, though infectious and differential as well. Is given IV fluids, pain meds, Levaquin. Pain improved and patient was able to tolerate diet. She will continue 7 more days of p.o. Levaquin and will follow up outpatient with GI. For her hypokalemia this resolved. For depression she was continued on Celexa and clonazepam. Time Spent with Patient Time attestation: Total time spent providing and/or coordinating discharge services: Discharge coordination time: Greater than 30 minutes Quality: Safe Use of Opioids Does Pt have an Active Cancer Diagnosis on the Problem List?: No Quality: Stroke Does the patient have a stroke diagnosis?: No Physical Exam Vital Signs: Vital Signs: Last Vital Signs Temp 97.6 F 08/19/22 07:17 Pulse 60 03/04/22 07:17 Resp 18 03/04/22 07:17 BP 138/69 03/04/22 07:17 Pulse Ox 96 03/04/22 07:17 O2 Del Method 03/04/22 07:17 O2 Flow Rate 2.0 03/03/22 22:01 BMI result Body Mass Index 32.6 General: AO X 3, no acute distress Resp: CTA bilateral, no accessory muscles used CVS: S1,S2,RRR GI: soft, mildly tender, non distended Neuro: motor grossly intact, alert Psych: appropriate affect, appropriate insight DS: Data Data Completed and Pending Labs on day of discharge: Laboratory Results - last 24 hr 03/04/22 03/04/22 05:09 05:09 WBC 8.2 RBC 3.64 L Hgb 11.2 L Hct 33.3 L MCV 91.5 MCH 30.8 MCHC 33.6 RDW 13.2 Plt Count 189 MPV 11.8 Absolute Nucleated RBC 0.000 Nucleated RBC % (auto) 0.0 Sodium 142 Potassium 3.6 Chloride 104 Carbon Dioxide 28 Anion Gap 14 BUN 10 Creatinine 0.76 Estim Creat Clear Calc 81.3 Estimated GFR > 60 Random Glucose 108 Calcium 8.6 D Preliminary micro results at discharge 03/02/22 13:05 Blood Culture - Preliminary Blood - Venous No growth after 24 hours. 03/02/22 12:54 Blood Culture - Preliminary Blood - Venous No growth after 24 hours. Discharge Plan Discharge Patient Disposition: Home, Self-Care Discharge Diagnosis: colitis Referrals: Physician,Nonstaff [Primary Care Provider] - 1 Week Discharge Medications: New levofloxacin 500 mg tablet 500 mg PO DAILY Qty: 7 0RF Continued citalopram 40 mg tablet 1 tab PO DAILY clonazepam 0.5 mg tablet 1 tab PO DAILY PRN (Reason: Anxiety) amlodipine 10 mg tablet 1 tab PO DAILY omeprazole 20 mg capsule,delayed release(DR/EC) 1 cap PO DAILY PRN (Reason: Heartburn) calcium carbonate-vitamin D3 [Calcium 500 + D] 500 mg-10 mcg (400 unit) Tablet 2 tab PO DAILY Discharge Orders: Discharge Order (Routine); Ordered 03/04/22 Ordered By: Jonathan Hdz Diet: Advance to usual diet Activity on Discharge: As tolerated Stand Alone Forms: Patient Portal Discharge page Care Plan Goals: recovery Health Concerns: colitis Plan of Treatment: levaquin for one week, follow up with gi for colonscopy Assessment: see above
[2022-03-04 11:13] VITALS: BP 141/68; PULSE 56; RESP 18; TEMP 36.3; O2SAT 2
--- NOTE | 2022-03-04 11:20 | MHC.CM.PN ---
PT MEDICALLY CLEARED TO D/C HOME SELF-CARE W/FAMILY FOR TRANSPORT
[2022-03-04] MEDS: levoFLOXacin/D5W 750 MG/150 ML PIGGYBACK 100 MG IV (12:35)
[2022-03-04 16:00] VITALS: TEMP 36.4; O2SAT 95
[2022-03-04 19:04] VITALS: BP 153/77; PULSE 67; RESP 16; TEMP 37.1; O2SAT 92
== END 2022-03-04 20:25 | disposition home or self-care (01) | DRG 394 ==
LOC: HO.ED 12:34 → HO.EDOVER 15:06 → HO.S3 03-03 19:18
PROVIDERS: Internal Medicine; Admitting Provider Student in an Organized Health Care Education/Training Program; Emergency Provider Emergency Medicine; Visit Provider Internal Medicine
DX: K55.039 Acute (reversible) ischemia of large intestine, extent unspecified (principal); K62.5 Hemorrhage of anus and rectum; I10 Essential (primary) hypertension; E87.6 Hypokalemia; K59.00 Constipation, unspecified; F32.A Depression, unspecified; F41.9 Anxiety disorder, unspecified; Z20.822 Contact with and (suspected) exposure to COVID-19; Z79.899 Other long term (current) drug therapy
CPT/HCPCS: 36415; 74178; 80048; 80076; 81001; 82272; 83605; 83690; 83735; 85025; 85027; 85610; 86850; 86900; 86901; 87040; 87086; 87493; 87507; 87635; 93005; 96361; 96374; 96375; 99285; J1170; J1956; J2405; J3010; Q9967